=== PATIENT | female | born 1950 | race Caucasian/White ===

== ENCOUNTER 2019-01-24 15:12 | Emergency (ER) | payer MEDICARE, OTHER ==
[2019-01-24] MEDS ORDERED: Lidocaine 1% 30 ML SDV INJECT ONE (17:03)
[2019-01-24] MEDS ORDERED: Diphtheria,Pertussis(Acell),Tetanus Vaccine 0.5 ML SDV IM ONE (17:03)
[2019-01-24] MEDS ORDERED: Bacitracin Oint 1 GM U/D Packet TOP ONE (17:04)
--- NOTE | 2019-01-24 21:00 | EDM.PDOC ---
ED HPI GENERAL MEDICAL PROBLEM - General Chief Complaint: Laceration Stated Complaint: FISH HOOK IN ARM Time Seen by Provider: 01/24/19 16:20 - History of Present Illness INITIAL COMMENTS - FREE TEXT/NARRATIVE: Fish Luer in right forearm. Had already cut the luer off due to it being heavy; so only the hook remains in forearm. Tdap outdated. No hx of DM. Is allergic to PCN. Denies tingling or numbness. She has a hematoma from trying to pull it out. Onset: Today Associated Symptoms: Reports: No Other Symptoms - Related Data Allergies Allergy/AdvReac Type Severity Reaction Status Date / Time Penicillins Allergy Cannot Verified 01/24/19 15:59 Remember Home Meds: Home Meds Lisinopril mg PO DAILY 01/24/19 [History] Omeprazole 20 mg PO BIDAC 01/24/19 [History] hydroCHLOROthiazide [Hydrochlorothiazide] mg PO WEEKLY 01/24/19 [History] Past Medical History Cardiovascular History: Reports: Hypertension Gastrointestinal History: Reports: GERD - Past Surgical History Female Surgical History: Reports: Other (See Below) Other Female Surgeries/Procedures: ovary removal Musculoskeletal Surgical History: Reports: Arthroscopic Knee Social & Family History - Family History Family Medical History: Noncontributory - Tobacco Use Smoking Status *Q: Former Smoker Used Tobacco, but Quit: Yes Month/Year Tobacco Last Used: 09/2014 - Caffeine Use Caffeine Use: Reports: None - Recreational Drug Use Recreational Drug Use: No ED ROS GENERAL - Review of Systems Review Of Systems: ROS reveals no pertinent complaints other than HPI. Musculoskeletal: Reports: Other (Pain where she has the fishing hook stuck superficially in mid fore arm with a small hematoma. ) ED EXAM, SKIN/RASH Exam: See Below Exam Limited By: No Limitations General Appearance: Alert, WD/WN, No Apparent Distress Respiratory/Chest: No Respiratory Distress, Lungs Clear Cardiovascular: Normal Peripheral Pulses, Regular Rate, Rhythm Peripheral Pulses: 4+: Radial (L), Radial (R) Extremities: Other (Pain where she has the fishing hook stuck superficially in mid fore arm with a small hematoma) Course - Vital Signs Text/Narrative:: Cleaned wound with betadine. Using 3 ml of 1% lidocaine without epi to anesthetized around the right forearm wound with hook. Using the forceps; I was able to push the hook back through then easily pull out the hook. Bev well. This appeared to be a dirty old francois hook. Placed on bactrim DS x 7 days and given Tdap. Would cleaned and dressing applied with bacitracin. Last Recorded V/S: Last Vital Signs Temp 36.3 C 01/24/19 16:01 Pulse 81 01/24/19 16:01 Resp 16 01/24/19 16:01 BP 122/73 01/24/19 16:01 Pulse Ox 98 01/24/19 16:01 - Orders/Labs/Meds Orders: Active Orders 24 hr Category Date Time Status Vaccines to be Administered [RC] PER UNIT ROUTINE Care 01/24/19 17:04 Active Meds: Medications Discontinued Medications Generic Name Dose Route Start Last Admin Trade Name Champ PRN Reason Stop Dose Admin Bacitracin 1 dose 01/24/19 17:04 01/24/19 17:23 Bacitracin Oint 1 Gm TOP 01/24/19 17:05 1 dose ONETIME ONE Administration Diphtheria/Tetanus/Acell Pertussis 0.5 ml 01/24/19 17:03 01/24/19 17:22 Adacel IM 01/24/19 17:04 0.5 ml .ONCE ONE Administration Lidocaine HCl 30 ml 01/24/19 17:03 01/24/19 17:23 Xylocaine-Mpf 1% INJECT 01/24/19 17:04 30 ml ONETIME ONE Administration Departure - Departure Time of Disposition: 17:00 Disposition: Home, Self-Care 01 Clinical Impression: Fish hook in forearm, Removal of foreign body - Discharge Information Instructions: Puncture Wound, [id number] Referrals: PCP,None [Primary Care Provider] - Forms: ED Department Discharge Additional Instructions: Keep area clean and dry. Monitor for signs of infection. TDAP immunization was given today. Fill prescription for antibiotics tomorrow and take until all gone. - My Orders Last 24 Hours: My Active Orders 01/24/19 17:04 Vaccines to be Administered [RC] PER UNIT ROUTINE - Assessment/Plan Last 24 Hours: My Active Orders 01/24/19 17:04 Vaccines to be Administered [RC] PER UNIT ROUTINE
== END 2019-01-24 18:06 | disposition home or self-care (01) ==
LOC: DL.ED 15:12
DX: S50.851A Superficial foreign body of right forearm, initial encounter (principal); Z23 Encounter for immunization; W45.8XXA Other foreign body or object entering through skin, initial encounter
CPT/HCPCS: 64450; 90471; 90715; 99282; 99283; J2001